=== PATIENT | female | born 2000 | race Caucasian/White ===

== ENCOUNTER 2023-01-17 07:58 | Emergency (ER) | payer OTHER ==
[~2023-01-17] VITALS: Ht 160 cm; Wt 80.0 kg
[2023-01-17 08:23] VITALS: O2SAT 100
[2023-01-17 10:48] VITALS: BP 109/66; PULSE 69; RESP 18; TEMP 98.2
== END 2023-01-17 11:02 | disposition short-term general hospital (02) ==
LOC: ER 07:58
DX: O09.93 Supervision of high risk pregnancy, unspecified, third trimester (principal)
CPT/HCPCS: 76815; 99285